=== PATIENT | female | born 1955 | race Two or more races ===

== ENCOUNTER → 2020-10-19 | Outpatient (CLI) | payer OTHER | END | disposition home or self-care (01) | LOC: OFIC 805 11:38 | PROVIDERS: ATTEND Otolaryngology Otology & Neurotology | DX: R42 Dizziness and giddiness (principal); H61.23 Impacted cerumen, bilateral; H90.A11 Conductive hearing loss, unilateral, right ear with restricted hearing on the contralateral side; H92.01 Otalgia, right ear ==